=== PATIENT | female | born 1950 | race Two or more races ===

== ENCOUNTER 2017-04-12 17:33 | Emergency (ER) | payer OTHER ==
[2017-04-12 21:12] VITALS: BP 163/107
== END 2017-04-12 21:12 | disposition left against medical advice (07) ==
LOC: ED 17:33
DX: R51 Headache (principal); M54.2 Cervicalgia; H92.02 Otalgia, left ear; R07.9 Chest pain, unspecified; R20.0 Anesthesia of skin; I10 Essential (primary) hypertension
CPT/HCPCS: J1885; J8597